=== PATIENT | female | born 1960 | race Caucasian/White ===

== ENCOUNTER 2017-03-10 15:09 | Emergency (ER) | payer BC ==
[~2017-03-10 15:09] MED LIST: LEVO100T5 PO; OXYC-323 PO; PANT40GR PO; TRAM50TA PO
[2017-03-10 15:15] VITALS: BP 141/98
--- NOTE | 2017-03-10 15:34 | RAD ---
Indication pain in the foot. No history of recent trauma. AP oblique and lateral views of the left foot were obtained. No acute bony finding is seen. There is some slight degenerative changes at the first metatarsal phalangeal joint. There is minimal cortical thickening associated with the proximal aspect of the fourth metatarsal on the lateral side having a chronic appearance similar to the examination 09/21/2015. IMPRESSION: No acute or significant bony finding seen involving the left foot
--- NOTE | 2017-03-10 15:38 | PHYS DOC ---
Past History Past Medical History: Arthritis, CAD, High Cholesterol, Hypothyroid, Other Past Surgical History: Appendectomy, Cholecystectomy, Tubal ligation Smoking: Greater than 1 pack/day Alcohol Use: None Drug Use: Opiates Adult General Chief Complaint Chief Complaint: FOOT INJURY PAIN HPI HPI 57-year-old female presenting to the emergency department today with left foot pain. (nursing note states left knee injury, pt denies knee pain and only has pain in the in the left foot.) Her foot pain started yesterday. She reports having a fall last night. The pain is mild nonradiating sharp intermittent and without alleviating factors. Worse with walking. Review of systems is negative for knee pain or hip pain proximally. She denies loss of consciousness or head trauma. All other review of systems is negative unless otherwise noted in history of present illness. Pertinent physical exam findings showed a neurovascularly intact left lower extremity with without ecchymosis laceration or abrasion. Mild pain over the left lateral portion of the foot. Nontender ankle. Normal range of motion of the ankle. ED course: 57-year-old female with left foot pain. X-rays obtained which were negative for acute fracture. Patient was offered an Blake wrap and discharged home to follow up with PCP over the next 4-5 days for repeat exam. They were to return if their symptoms worsened or if they were concerned for any reason. [id number] discharge instructions and return precautions were given. Patient' s questions were answered to their satisfaction. Patient is comfortable plan. Review of Systems Review of Systems SEE ABOVE. Allergies Allergies Allergies Coded Allergies Type Severity Reaction Last Updated Verified Nitrofurantoin Macrocrystal Allergy Unknown 08/28/14 Yes Physical Exam Physical Exam Constitutional: Well developed, well nourished, no acute distress, non-toxic appearance. [] HENT: Normocephalic, atraumatic, bilateral external ears normal, oropharynx moist, no oral exudates, nose normal. [] Eyes: PERRLA, EOMI, conjunctiva normal, no discharge. [] Neck: Normal range of motion, no tenderness, supple, no stridor. [] Cardiovascular:Heart rate regular rhythm, no murmur [] Lungs & Thorax: Bilateral breath sounds clear to auscultation [] Abdomen: Bowel sounds normal, soft, no tenderness, no masses, no pulsatile masses. [] Skin: Warm, dry, no erythema, no rash. [] Back: No tenderness, no CVA tenderness. [] Extremities: see above Neurologic: Alert and oriented X 3, normal motor function, normal sensory function, no focal deficits noted. [] Psychologic: Affect normal, judgement normal, mood normal. [] Current Patient Data Vital Signs Vital Signs Date Time Temp Pulse Resp B/P (MAP) Pulse Ox O2 Delivery O2 Flow Rate FiO2 03/10/17 15:15 98.1 94 22 95 Room Air EKG EKG [] Radiology/Procedures Radiology/Procedures [] Course & Med Decision Making Course & Med Decision Making Pertinent Labs and Imaging studies reviewed. (See chart for details) [] Dragon Disclaimer Dragon Disclaimer This chart was dictated in whole or in part using Voice Recognition software in a busy, high-work load, and often noisy Emergency Department environment. It may contain unintended and wholly unrecognized errors or omissions. Departure Departure: Impression: Primary Impression: Left foot pain Disposition: HOME, SELF-CARE Condition: STABLE Referrals: JACQUI YAO (PCP) Patient Instructions: Foot Contusion, [id number] Additional Instructions: Thank you for allowing us to participate in your care today. Followup with your primary care physician in 3 days if your symptoms do not improve. If you do not have a primary care provider you can ask for a list of our primary care providers. Return to the emergency department you have any new or concerning findings. This should be evaluated by the primary care physician and any necessary consulting services for continued management within a few days after discharge. Return to emergency room if you have any new or concerning symptoms including but not limited to fever, chills, nausea, vomiting, intractable pain, any new rashes, chest pain, shortness of air, uncontrolled bleeding, difficulty breathing, and/or vision loss. KOFI MATHEWS MD March 10, 2017 15:38
[2017-03-10] MEDS ORDERED: HYDROcodone/APAP 5/325MG 1 TAB TABLET PO ONE (16:00)
== END 2017-03-10 15:50 | disposition home or self-care (01) ==
LOC: ER 15:09
DX: M79.672 Pain in left foot (principal); E78.00 Pure hypercholesterolemia, unspecified; E03.9 Hypothyroidism, unspecified; I25.10 Atherosclerotic heart disease of native coronary artery without angina pectoris; M19.90 Unspecified osteoarthritis, unspecified site; F17.200 Nicotine dependence, unspecified, uncomplicated; F11.10 Opioid abuse, uncomplicated; Z88.8 Allergy status to other drugs, medicaments and biological substances; W19.XXXA Unspecified fall, initial encounter; Y93.89 Activity, other specified; Y99.8 Other external cause status; Y92.89 Other specified places as the place of occurrence of the external cause
CPT/HCPCS: 73630; 99284

== ENCOUNTER 2017-04-24 13:50 | Emergency (ER) | payer BC ==
[~2017-04-24] VITALS: Ht 167.6 cm; Wt 88.5 kg
[2017-04-24 14:20] VITALS: BP 156/97
[2017-04-24] MEDS ORDERED: METH4TAB2 PO (14:36)
--- NOTE | 2017-04-24 14:37 | PHYS DOC ---
Past History Past Medical History: Hypothyroid Past Surgical History: Appendectomy, Cholecystectomy, Knee Replacement, Tubal ligation, Other Smoking: Greater than 1 pack/day Additional Smoking Information: PATIENT STATES SHE SMOKES 3/4 PACK/ DAY Alcohol Use: None Drug Use: Opiates Adult General Chief Complaint Chief Complaint: knee pain HPI HPI Patient is a 57 year old female who presents with complaint of right knee pain. Patient states that she's had history of back and hip problems for several years and had surgery on her left foot over a year ago for treatment of a torn muscle per patient. Patient states that she has had difficulty with pain in her lower extremities over sounds. The patient's main concern however is her right knee today as it started hurting over the past 2-3 days. The patient states that she has noticed that her knee has "turned in." On further questioning the patient states "actually both my knees are turned down." Patient rates her pain and her knee as 7 out of 10. Patient has taken hydrocodone at home with no relief in symptoms. Patient denies any trauma or injury to the right knee. Patient denies any other acute symptoms associated with any pain. Review of Systems Review of Systems Constitutional: Denies fever or chills [] Eyes: Denies change in visual acuity, redness, or eye pain [] HENT: Denies nasal congestion or sore throat [] Respiratory: Denies cough or shortness of breath [] Cardiovascular: Denies chest pain or edema [] GI: Denies abdominal pain, nausea, vomiting, bloody stools or diarrhea [] : Denies dysuria or hematuria [] Musculoskeletal: Right knee pain, chronic back pain, chronic left foot pain [] Integument: Denies rash or skin lesions [] Neurologic: Denies headache, focal weakness or sensory changes [] Allergies Allergies Allergies Coded Allergies Type Severity Reaction Last Updated Verified Nitrofurantoin Macrocrystal Allergy Unknown 08/28/14 Yes Physical Exam Physical Exam Constitutional: Alert, afebrile, appears in moderate discomfort. [] HENT: Normocephalic, atraumatic, bilateral external ears normal, oropharynx moist, no oral exudates, nose normal. [] Eyes: PERRLA, EOMI, conjunctiva normal, no discharge. [] Neck: Normal range of motion, no tenderness, supple, no stridor. [] Cardiovascular:Heart rate regular rhythm, no murmur [] Lungs & Thorax: Bilateral breath sounds clear to auscultation [] Abdomen: Bowel sounds normal, soft, no tenderness, no masses, no pulsatile masses. [] Skin: Warm, dry, no erythema, no rash. [] Back: No tenderness, no CVA tenderness. [] Extremities: Mild valgus alignment of lower extremities, no obvious deformity to right knee, mild anterior joint space tenderness to palpation, full range of motion present, mild crepitus along the patellar tendon with extension, left foot with mild lateral tenderness to palpation, mild soft tissue swelling, no erythema present. [] Neurologic: Alert and oriented X 3, normal motor function, normal sensory function, no focal deficits noted. [] Current Patient Data Vital Signs Vital Signs Date Time Temp Pulse Resp B/P (MAP) Pulse Ox O2 Delivery O2 Flow Rate FiO2 04/24/17 14:20 98.1 89 18 98 Room Air EKG EKG Not performed [] Radiology/Procedures Radiology/Procedures Not performed [] Course & Med Decision Making Course & Med Decision Making Pertinent Labs and Imaging studies reviewed. (See chart for details) The patient has mild valgus alignment of the lower extremities which does not appear to be in acute finding. The patient's symptoms are likely due to inflammation from underlying degenerative arthritis. After speaking with the patient we have agreed to start patient on a Medrol Dosepak to treat inflammation. I advised to continue on [place] as needed for pain. Recommended follow-up with the patient's primary doctor in 5 days for reevaluation. Advised return emergency department for any worsening symptoms. Patient voiced understanding and in agreement with treatment plan. Dragon Disclaimer Dragon Disclaimer This chart was dictated in whole or in part using Voice Recognition software in a busy, high-work load, and often noisy Emergency Department environment. It may contain unintended and wholly unrecognized errors or omissions. Departure Departure: Impression: Primary Impression: Right knee pain Disposition: 01 HOME, SELF-CARE Condition: STABLE Referrals: JACQUI YAO (PCP) Patient Instructions: Knee Pain Additional Instructions: Follow-up with your primary doctor in 5 days if symptoms are not improving. Return to emergency department for any worsening symptoms. Scripts Methylprednisolone (MEDROL) 4 Mg Tab.ds.pk 1 PKG PO UD, #1 PKG Prov: RIA MEJIA MD 04/24/17 Problem Qualifiers Primary Impression: Right knee pain Chronicity: acute Qualified Codes: M25.561 - Pain in right knee RIA MEJIA MD Apr 24, 2017 14:37
== END 2017-04-24 14:50 | disposition home or self-care (01) ==
LOC: ER 13:50
DX: M25.561 Pain in right knee (principal); M79.672 Pain in left foot; G89.29 Other chronic pain; M54.89 Other dorsalgia; E03.9 Hypothyroidism, unspecified; F17.200 Nicotine dependence, unspecified, uncomplicated; F11.10 Opioid abuse, uncomplicated; Z88.8 Allergy status to other drugs, medicaments and biological substances
CPT/HCPCS: 99283

== ENCOUNTER → 2017-06-04 | Outpatient (CLI) | payer BC ==
[~2017-06-04] MED LIST changes: +METH4TAB2 PO
--- NOTE | 2017-06-04 15:37 | RAD ---
Acute abdomen series with chest, 3 views, 06/04/2017: History: Left-sided pain and vomiting Surgical and sutures are present in the right abdomen.. Gas is present in large and small bowel in a nonspecific pattern. No free air is seen in the abdomen. There is no evidence of organomegaly. Multiple pelvic calcifications are compatible with phleboliths. There are mild scattered degenerative changes in the spine. The heart size is normal. No pulmonary infiltrate is seen. There is no evidence of pleural fluid. IMPRESSION: No acute abdominal abnormality is detected.
== END | disposition home or self-care (01) ==
LOC: DXRADRC 15:04
PROVIDERS: ATTEND Physician Assistant
DX: N94.89 Other specified conditions associated with female genital organs and menstrual cycle (principal); R10.32 Left lower quadrant pain; R11.10 Vomiting, unspecified; Z87.11 Personal history of peptic ulcer disease
CPT/HCPCS: 74022

== ENCOUNTER 2017-06-27 17:49 | Emergency (ER) | payer BC ==
[2017-06-27] MEDS ORDERED: IV NORMAL SALINE 1,000ML 1,000 ML IV SCH (18:40)
[2017-06-27] MEDS ORDERED: IOHEXOL 240 MG/ML 50ML VIAL. PO ONE (18:45)
[2017-06-27] MEDS ORDERED: HYDROmorphone PF 1 MG/ML DISP.SYRIN IV/SQ PRN (18:45)
[2017-06-27] MEDS ORDERED: FAMOTIDINE 20 MG/2 ML VIAL IVP ONE (18:45)
[2017-06-27] MEDS ORDERED: 0.9 % SODIUM CHLORIDE 10 ML DISP.SYRIN. IV PRN (18:45)
[2017-06-27] MEDS ORDERED: IOHEXOL 300 MG/ML 75 ML VIAL. IV ONE (18:45)
--- NOTE | 2017-06-27 18:48 | PHYS DOC ---
Past History Past Medical History: High Cholesterol, Hypothyroid Additional Past Medical Histor: carotid disease Past Surgical History: Appendectomy, Cholecystectomy, Knee Replacement, Tubal ligation, Other Additional Past Surgical Histo: impression bowel resection Smoking: Greater than 1 pack/day Alcohol Use: None Drug Use: None, Opiates Adult General Chief Complaint Chief Complaint: ABDOMINAL PAIN HPI HPI She is a pleasant 57-year-old female with history of hypercholesterolemia, hypothyroidism, prior history of questionable anal bowel disease with local resection secondary to Crohn's and carotid artery disease who presents with left lower quadrant abdominal pain that began several days ago any dark tarry stool described as watery and thin. Patient has had a history of GI bleed in the past as well presents concerned she is having another GI bleed. She denies any change in medications, has had some nausea without vomiting secondary to her use of Zofran for last 3 weeks. She's been on hydrocodone for a long period of time secondary to chronic back pain and gabapentin for the same pain. Patient relates a long-standing history of right and left foot problems requiring chronic medications. Patient has had no sick contacts, no travel outside the country, is not using NSAIDs, denies any alcohol consumption or use , denies he problems with her liver. Patient says the pain in her left lower abdomen is waxing and waning but never completely resolves last several days described as achy 4 of 10. Patient's pain doesn't radiate to the back of the right side. sHe denies any trauma, abuse or sick contacts. Review of Systems Review of Systems Constitutional: Denies fever or chills [] Eyes: Denies change in visual acuity, redness, or eye pain [] HENT: Denies nasal congestion or sore throat [] Respiratory: Denies cough or shortness of breath [] Cardiovascular: No additional information not addressed in HPI [] GI: He describes abdominal pain with nausea no vomiting no bright red blood in her stools but dark tarry diarrhea. : Denies dysuria or hematuria [] Musculoskeletal: Back pain chronic right foot pain chronic left foot pain Integument: Denies rash or skin lesions [] Neurologic: Denies headache, focal weakness or sensory changes [] Endocrine: Denies polyuria or polydipsia [] Current Medications Current Medications Current Medications Medications (Trade) Dose Ordered Sig/Kenn Start Time Stop Time Status Last Admin Dose Admin Famotidine (Pepcid) 20 mg 1X ONCE 06/27/17 18:45 06/27/17 18:46 UNV Hydromorphone HCl (Dilaudid) 0.5 mg PRN Q15MIN PRN 06/27/17 18:45 06/28/17 18:44 UNV Sodium Chloride 1,000 ml @ 1,000 mls/hr Q1H 06/27/17 18:40 06/27/17 19:39 UNV Sodium Chloride (Normal Saline Flush) 10 ml QSHIFT PRN 06/27/17 18:45 UNV Allergies Allergies Allergies Coded Allergies Type Severity Reaction Last Updated Verified Nitrofurantoin Macrocrystal Allergy Unknown 08/28/14 Yes Physical Exam Physical Exam Constitutional: Well developed, well nourished, no acute distress, non-toxic appearance. [] HENT: Normocephalic, atraumatic, bilateral external ears normal, oropharynx moist, no oral exudates, nose normal. [] Eyes: PERRLA, EOMI, conjunctiva normal, no discharge. [] Neck: Normal range of motion, no tenderness, supple, no stridor. [] Cardiovascular:Heart rate regular rhythm, no murmur [] Lungs & Thorax: Bilateral breath sounds clear to auscultation [] Abdomen: Patient has tenderness to palpation left lower quadrant no voluntary guarding rebound or organomegaly. There are no masses or pulsatile masses noted. Rectal exam demonstrates a hemorrhoid nonbleeding nonthrombosed brown stool no obvious signs of melena. Skin: Warm, dry, no erythema, no rash. [] Extremities: No tenderness, no cyanosis, no clubbing, ROM intact, no edema. [] Neurologic: Alert and oriented X 3, normal motor function, normal sensory function, no focal deficits noted. [] Psychologic: Affect normal, judgement normal, mood normal. [] EKG EKG []EKG timed 6:49 PM 06/27/[address] Israel demonstrates normal sinus rhythm with a heart rate of 91. Level of 148 which is normal, QTC which is 432 which is normal, QRS which is 80 which is normal, patient has occasional PVCs otherwise normal looking EKG with no ST segment or T-wave changes consistent with acute coronary ischemia. Radiology/Procedures Radiology/Procedures [] Course & Med Decision Making Course & Med Decision Making Pertinent Labs and Imaging studies reviewed. (See chart for details) Limited by the possible GI bleed. Possible upper GI source. Patient will have a CT of head and pelvis completed rule out diverticulosis diverticulitis or small bowel obstruction or localized inflammatory changes consistent with IBS. Patient also fluids, antiemetics, pain meds provided as laboratory work supportive with a diagnosis of of GI bleed is completed. Patient will also have a EKG and troponin completed as well given her carotid disease and hyperlipidemia. [] Patient tells me that their symptoms given during CC are improved. We reviewed labs her H&H is normal at 14 and 44 her INR is normal at 1, her guaiac card is negative for occult blood in the stool, lipase is normal, her troponin is negative, Laboratory Tests Test 06/27/17 18:40 06/27/17 18:45 Stool Occult Blood Negative (NEG) White Blood Count 8.5 x10^3/uL (4.0-11.0) Red Blood Count 4.33 x10^6/uL (3.50-5.40) Hemoglobin 14.1 g/dL (12.0-15.5) Hematocrit 39.4 % (36.0-47.0) Mean Corpuscular Volume 91 fL (79-100) Mean Corpuscular Hemoglobin 33 pg (25-35) Mean Corpuscular Hemoglobin Concent 36 g/dL (31-37) Red Cell Distribution Width 12.5 % (11.5-14.5) Platelet Count 357 x10^3/uL (140-400) Neutrophils (%) (Auto) 73 % (31-73) Lymphocytes (%) (Auto) 17 % (24-48) L Monocytes (%) (Auto) 7 % (0-9) Eosinophils (%) (Auto) 3 % (0-3) Basophils (%) (Auto) 1 % (0-3) Neutrophils # (Auto) 6.1 x10^3uL (1.8-7.7) Lymphocytes # (Auto) 1.4 x10^3/uL (1.0-4.8) Monocytes # (Auto) 0.6 x10^3/uL (0.0-1.1) Eosinophils # (Auto) 0.2 x10^3/uL (0.0-0.7) Basophils # (Auto) 0.1 x10^3/uL (0.0-0.2) Prothrombin Time 9.9 SEC (9.4-11.4) Prothrombin Time INR 1.0 (0.9-1.1) PTT 24 SEC (23-33) Sodium Level 142 mmol/L (136-145) Potassium Level 3.6 mmol/L (3.5-5.1) Chloride Level 108 mmol/L (98-107) H Carbon Dioxide Level 28 mmol/L (21-32) Anion Gap 6 (6-14) Blood Urea Nitrogen 8 mg/dL (7-20) Creatinine 1.1 mg/dL (0.6-1.0) H Estimated GFR (Cockcroft-Gault) 51.6 Glucose Level 101 mg/dL (70-99) H Calcium Level 9.0 mg/dL (8.5-10.1) Total Bilirubin 0.3 mg/dL (0.2-1.0) Direct Bilirubin 0.1 mg/dL (0.0-0.2) Aspartate Amino Transferase (AST) 17 U/L (15-37) Alanine Aminotransferase (ALT) 23 U/L (14-59) Alkaline Phosphatase 124 U/L (46-116) H Troponin I Quantitative < 0.017 ng/mL (0-0.055) Total Protein 7.0 g/dL (6.4-8.2) Albumin 3.2 g/dL (3.4-5.0) L Lipase 71 U/L (73-393) L . She presented with fear of a GI bleed but there is no evidence of GI. At this time. Patient's CT scan abdomen and pelvis is still pending at this time time is now 8:[address] [place] [id number] IMAGING REPORT Signed PATIENT: JIMENA LANDEROS ACCOUNT: [id number] : 1960 LOCATION: ER AGE: 57 SEX: F EXAM STATUS: REG ER ORD. PHYSICIAN: KEVON ISRAEL MD REASON: llq ab pain PROCEDURE: CT ABD PELV W/ORAL&IV CONTRAST PQRS Compliance Statement: One or more of the following individualized dose reduction techniques were utilized for this examination: 1. Automated exposure control 2. Adjustment of the mA and/or kV according to patient size 3. Use of iterative reconstruction technique CT abdomen/pelvis with contrast 06/27/2017 at 8:07 PM INDICATION: Abdominal pain, nausea and vomiting with diarrhea. COMPARISON: None available TECHNIQUE: Multiple axial CT images of abdomen and pelvis were obtained after the administration of 75 cc Omnipaque 300. Coronal and sagittal reformats are provided. FINDINGS: There is minimal subsegmental atelectasis at the lung bases. Heart size is within normal limits. Liver, spleen, pancreas and right adrenal gland are within normal limits. There is a left adrenal lesion measuring 2.7 x 2.4 cm this lesion is indeterminate by CT. The abdominal aorta is normal in course and caliber. There are no pathologically enlarged lymph nodes in abdomen or pelvis. There is no free intraperitoneal air. No free fluid. Kidneys enhance symmetrically. No suspicious renal lesions are identified. No renal calculi are identified. No calculi are identified along the ureters and urinary bladder. Urinary bladder is within normal limits given degree of distention. Uterus and adnexa are within normal limits. Calcification is noted in the right adnexa measuring 1.3 cm. Oral contrast was administered. There are no dilated loops of small and large bowel. Postsurgical changes with bowel anastomosis noted in the right mid abdomen. There is no focal bowel wall thickening. No suspicious osseous lesions are identified. IMPRESSION: 1. No acute abnormality within the abdomen or pelvis. Specifically, no evidence for bowel obstruction. Appendix is surgically absent. 2. There is a left adrenal lesion which is indeterminate by CT. Recommend correlation with outside films if available. Otherwise, CT adrenal mass protocol or MRI of the abdomen may be of benefit. Electronically signed by: Parisa Nicole MD (06/27/2017 8:26 PM) [facility] DICTATED AND SIGNED BY: PARISA NICOLE MD DATE: 06/27/172019 CC: KEVON ISRAEL MD; JACQUI YAO ~ Impression CT abdomen and pelvis does not demonstrate any signs of diverticulitis, or specific surgical issue requiring intervention at this time. Patient has an adrenal mass that need to be evaluated by an MRI in the future I will let her know these issues will need to be followed up with her primary care doctor referral. Dragon Disclaimer Dragon Disclaimer This chart was dictated in whole or in part using Voice Recognition software in a busy, high-work load, and often noisy Emergency Department environment. It may contain unintended and wholly unrecognized errors or omissions. Departure Departure: Impression: Primary Impression: Abdominal pain Additional Impression: Mass of left adrenal gland Disposition: HOME, SELF-CARE Condition: IMPROVED Referrals: JACQUI YAO (PCP) Patient Instructions: Abdominal Pain Additional Instructions: My discharge plan Follow up: In addition patient is asked to followup with their primary doctor, within a week for followup examination and to address patient's ongoing medical conditions. Patient is advised that in the Emergency Department primary complaints are addressed and only in light of known signs and symptoms. Patient should return immediately to the emergency department if new signs and symptoms develop or patient's condition worsens in any way. At time of discharge patient was in stable condition and had verbalized understanding of the discharge instructions. You have been on differentiated left adrenal mass that will need to be further characterized by MRI in the future. I would ask you pass this information along to primary care doctor to arrange further imaging of your adrenal gland to help it and apply what this mass is. Scripts Pantoprazole Sodium (PROTONIX) 40 Mg Tablet.dr 1 TAB PO DAILY, #30 TAB 5 Refills Prov: KEVON ISRALE MD 06/27/17 Problem Qualifiers KEVON ISRAEL MD Jun 27, 2017 18:48
[2017-06-27 19:10] LABS: FECAL OB PT NEGATIVE (NEG)
[2017-06-27 19:10] LABS: BASO # 0.1 x10^3/uL (0.0-0.2); BASO % 1 % (0-3); EOS # 0.2 x10^3/uL (0.0-0.7); EOS % 3 % (0-3); HEMATOCRIT 39.4 % (36.0-47.0); HEMOGLOBIN 14.1 g/dL (12.0-15.5); LYMPH # 1.4 x10^3/uL (1.0-4.8); LYMPH % 17 % (24-48); MEAN CORPUSCULAR HEMOGLOBIN 33 pg (25-35); MEAN CORPUSCULAR HGB CONC 36 g/dL (31-37); MEAN CORPUSCULAR VOLUME 91 fL (79-100); MONO # 0.6 x10^3/uL (0.0-1.1); MONO % 7 % (0-9); NEUT # 6.1 x10^3uL (1.8-7.7); NEUT % 73 % (31-73); PLATELET COUNT 357 x10^3/uL (140-400); RED BLOOD COUNT 4.33 x10^6/uL (3.50-5.40); RED CELL DISTRIBUTION WIDTH 12.5 % (11.5-14.5); WHITE BLOOD COUNT 8.5 x10^3/uL (4.0-11.0)
[2017-06-27 19:25] LABS: ALBUMIN 3.2 g/dL (3.4-5.0); CREATININE 1.1 mg/dL (0.6-1.0); DIRECT BILIRUBIN 0.1 mg/dL (0.0-0.2); GFR 51.6; POTASSIUM 3.6 mmol/L (3.5-5.1); TOTAL BILIRUBIN 0.3 mg/dL (0.2-1.0)
[2017-06-27 20:19] LABS: BILIRUBIN,URINE NEG (NEG); CLARITY,URINE CLEAR; COLOR,URINE AMBER; GLUCOSE,URINE NEG (NEG); UROBILINOGEN,URINE 0.2 mg/dL (0.2 mg/dL)
[2017-06-27 20:20] LABS: BACTERIA,URINE 0 /HPF (0-FEW); NITRITE,URINE NEG (NEG); RBC,URINE OCC /HPF (0-2); SQUAMOUS EPITHELIAL CELL,UR OCC /LPF; WBC,URINE 0 /HPF (0-4)
--- NOTE | 2017-06-27 20:30 | RAD ---
PQRS Compliance Statement: One or more of the following individualized dose reduction techniques were utilized for this examination: 1. Automated exposure control 2. Adjustment of the mA and/or kV according to patient size 3. Use of iterative reconstruction technique CT abdomen/pelvis with contrast 06/27/2017 at 8:07 PM INDICATION: Abdominal pain, nausea and vomiting with diarrhea. COMPARISON: None available TECHNIQUE: Multiple axial CT images of abdomen and pelvis were obtained after the administration of 75 cc Omnipaque 300. Coronal and sagittal reformats are provided. FINDINGS: There is minimal subsegmental atelectasis at the lung bases. Heart size is within normal limits. Liver, spleen, pancreas and right adrenal gland are within normal limits. There is a left adrenal lesion measuring 2.7 x 2.4 cm this lesion is indeterminate by CT. The abdominal aorta is normal in course and caliber. There are no pathologically enlarged lymph nodes in abdomen or pelvis. There is no free intraperitoneal air. No free fluid. Kidneys enhance symmetrically. No suspicious renal lesions are identified. No renal calculi are identified. No calculi are identified along the ureters and urinary bladder. Urinary bladder is within normal limits given degree of distention. Uterus and adnexa are within normal limits. Calcification is noted in the right adnexa measuring 1.3 cm. Oral contrast was administered. There are no dilated loops of small and large bowel. Postsurgical changes with bowel anastomosis noted in the right mid abdomen. There is no focal bowel wall thickening. No suspicious osseous lesions are identified. IMPRESSION: 1. No acute abnormality within the abdomen or pelvis. Specifically, no evidence for bowel obstruction. Appendix is surgically absent. 2. There is a left adrenal lesion which is indeterminate by CT. Recommend correlation with outside films if available. Otherwise, CT adrenal mass protocol or MRI of the abdomen may be of benefit. Electronically signed by: Callie Ramirez MD (06/27/2017 8:26 PM) [facility]
[2017-06-27] MEDS ORDERED: PANT40TA3 PO (20:39)
[2017-06-27 20:43] VITALS: BP 116/70
--- NOTE | 2017-06-28 00:31 | EKG ---
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
== END 2017-06-27 20:44 | disposition home or self-care (01) ==
LOC: ER 17:49
DX: E27.8 Other specified disorders of adrenal gland (principal); G89.29 Other chronic pain; E03.9 Hypothyroidism, unspecified; E78.00 Pure hypercholesterolemia, unspecified; Z90.49 Acquired absence of other specified parts of digestive tract; Z98.51 Tubal ligation status; Z88.8 Allergy status to other drugs, medicaments and biological substances
CPT/HCPCS: 36415; 74177; 80048; 80076; 81001; 82274; 83690; 84484; 85025; 85610; 85730; 86850; 86900; 86901; 93005; 96361; 96374; 96375; 99285; J1170; Q9966; Q9967; S0028; J7030

== ENCOUNTER → 2017-09-08 | Outpatient (CLI) | payer BC ==
[~2017-09-08] MED LIST changes: +PANT40TA3 PO
--- NOTE | 2017-09-08 16:16 | RAD ---
Pelvis with both hips, 09/08/2017: History: Fall, right hip pain No acute fracture or dislocation is identified. There is mild deformity of the right femoral neck with moderate spurring. There is only minimal narrowing of the right hip joint space. There is mild degenerative change at the symphysis pubis. There is mild facet joint arthropathy in the lower lumbar spine. IMPRESSION: 1. Mild to moderate degenerative change at the right hip joint. 2. No acute bony abnormality is detected.
== END | disposition home or self-care (01) ==
LOC: DXRAD 15:42
PROVIDERS: ATTEND Physician Assistant
DX: M16.11 Unilateral primary osteoarthritis, right hip (principal); F17.200 Nicotine dependence, unspecified, uncomplicated
CPT/HCPCS: 73521